=== PATIENT | male | born 1995 | race Caucasian/White ===

== ENCOUNTER 2022-07-17 19:06 | Emergency (ER) | payer BC, SELFPAY ==
[2022-07-17 19:29] VITALS: BP 137/105; PULSE 86; RESP 14; TEMP 36.7; O2SAT 100
[2022-07-17 19:44] LABS: Appearance Urine Clear (Clear); Bilirubin Urine Negative (Negative); Blood Urine Negative (Negative); Color Urine Yellow (Yellow); Glucose Urine UA Negative (Negative); Ketones Urine Trace mg/dL (Negative); Leukocyte Esterase Ur Negative LEU/UL (Negative); Nitrate Urine Negative (Negative); Protein Urine Negative (Negative); Urobilinogen Urine 0.2 mg/dL (<2.0)
[2022-07-17 19:47] LABS: Add Urine Microscopic? YES; Mucus Urine Rare /lpf; Squamous Epithelial Cell Urine Rare /hpf (Few); WBC Urine 0-3 /hpf
--- NOTE | 2022-07-17 21:36 | ED.MALEGU ---
HPI - Male Genitourinary General Chief complaint: Urogenital-Male Stated complaint: penis stabbing pain, no discharge Time Seen by Provider: 07/17/22 21:18 History of Present Illness HPI Narrative: Patient is a 26-year-old male who presents ER with pain in his penis. Reports its been intermittent in nature. When the pain comes it only lasts 1 to 2 seconds. It was worse with stretching backwards today. It is not associated with urinary frequency/urgency. Intermittent dysuria. Denies discharge from the tip of his penis. He was told by his girlfriend that his free ejaculate taste often smells bad. He has history of chlamydia in the past but reports he is only been with 1 person and the significant other reports she has only been with him. He has no pain in his abdomen, no nausea or vomiting or sweats. No flank pain. No history of stones. He has noticed no discharge/rash around his penis. Has not had issues with this previously. He is recently not been wearing underwear due to some chafing of his thighs and is unsure if this could be related. Related Data Allergies Allergy/AdvReac Type Severity Reaction Status Date / Time levofloxacin [From Levaquin] Allergy Hives Verified 07/17/22 19:07 Review of Systems Review of Systems: All systems reviewed & are unremarkable except as noted in HPI and below Constitutional: Constitutional: Denies chills, Denies fatigue and Denies fever(s) Cardiovascular: Cardiovascular: Denies chest pain and Denies slow heart rate Respiratory: Respiratory: Reports cough Genitourinary: Genitourinary: Denies hematuria, Denies oliguria, Denies genital lesions, Reports dysuria, Denies penile discharge and Denies testicular pain PMFSH Past Medical History Medical History (Updated 07/17/22 @ 21:50 by Darius Caceres MD) Healthy adult male Surgical History Surgical History (Updated 07/17/22 @ 21:50 by Darius Caceres MD) No history of previous surgery Exam Narrative: GENERAL: Well-appearing, well-nourished, and in no acute distress. HEAD: Normocephalic, atraumatic. ENT: Mucous membranes moist. EXTREMITIES: Normal range of motion. No edema. : Normal-appearing external genitalia with circumcised penis, glans free of rash or discharge. No abnormality to the urethral meatus and no urethral discharge. Testicles normal in contour and nontender. SKIN: Warm, dry, no rash. NEURO: Alert and oriented x3. PSYCH: Normal mood and affect. Course Vital Signs Vital signs: Vital Signs Temperature 98.0 F 07/17/22 19:29 Pulse Rate 86 07/17/22 19:29 Respiratory Rate 14 07/17/22 19:29 Blood Pressure 137/105 H 07/17/22 19:29 Pulse Oximetry 100 07/17/22 19:29 Oxygen Delivery Room Air 07/17/22 19:29 Temperature 98.0 F 07/17/22 19:29 Pulse Rate 86 07/17/22 19:29 Respiratory Rate 14 07/17/22 19:29 Blood Pressure 137/105 H 07/17/22 19:29 Pulse Oximetry 100 07/17/22 19:29 Oxygen Delivery Room Air 07/17/22 19:29 MDM - Male Genitourinary Lab Data Labs: Lab Results 07/17/22 Range/Units 19:33 Urine Color Yellow (Yellow) Urine Appearance Clear (Clear) Urine pH 7.0 (5.0-9.0) Ur Specific [place] 1.020 (1.001-1.035) Urine Protein Negative (Negative) mg/dL Urine Glucose (UA) Negative (Negative) mg/dL Urine Ketones Trace (Negative) mg/dL Ur Blood (Man) Negative (Negative) Urine Nitrate Negative (Negative) Urine Bilirubin Negative (Negative) Urine Urobilinogen 0.2 (<2.0) mg/dL Leukocyte Esterase Rfl Negative (Negative) NICANOR/UL Urine RBC 3-5 H (0-2) /hpf Urine WBC 0-3 /hpf Ur Squamous Epith Cells Rare (Few) /hpf Urine Mucus Rare /lpf Discharge Plan Discharge Clinical Impression: Pain in penis Patient Disposition: Home, Self-Care Condition: Stable Additional Instructions: It is unknown why you are having discomfort in your penis. A gonorrhea and chlamydia screen was sent. Follow-up
== END 2022-07-17 21:52 | disposition home or self-care (01) ==
PROVIDERS: Physician Assistant; Emergency Provider Emergency Medicine
DX: N48.89 Other specified disorders of penis (principal)
CPT/HCPCS: 81001; 99283

== ENCOUNTER 2024-03-04 15:49 | Emergency (ER) | payer BC, SELFPAY ==
--- NOTE | 2024-03-04 15:56 | ED.MALEGU ---
HPI - Male Genitourinary General Chief complaint: Urogenital-Male Stated complaint: STD Testing Source: patient and RN notes reviewed Mode of arrival: ambulatory Limitations: no limitations History of Present Illness HPI Narrative: 28 y/o male presented for STD testing. Endorses known exposure to chlamydia; states his girlfriend tested positive, and he thinks he gave it to her because he was with a dirty girl before the girlfriend. Denies symptoms. Related Data Home Medications Medication Instructions Recorded Confirmed aripiprazole 10 mg tablet 10 mg DIRECTED 03/04/24 03/04/24 sertraline 50 mg tablet 50 mg DIRECTED 03/04/24 03/04/24 Allergies Allergy/AdvReac Type Severity Reaction Status Date / Time levofloxacin [From Levaquin] Allergy Hives Verified 07/17/22 19:07 Review of Systems Review of Systems: CONSTITUTIONAL: Denies body aches, fever, chills, or sweats. CARDIOVASCULAR: Denies chest pain, palpitations, or edema. RESPIRATORY: Denies cough or dyspnea. GASTROINTESTINAL: Denies abdominal pain, nausea, vomiting, or diarrhea. GENITOURINARY: denies dysuria, frequency, urgency, hematuria, flank pain SKIN: Denies rash, itching, or wounds. MUSCULOSKELETAL: Denies back pain or myalgia. [facility] Past Medical History Medical History Healthy adult male Surgical History Surgical History No history of previous surgery Comments At time of signature, I have reviewed and agree with nursing past medical, surgical, social and family history unless otherwise noted. Please see nursing chart for further information. There is no relevant family history pertinent to the presenting complaint Exam Narrative: GENERAL: Well-appearing ENT: Mucous membranes pink and moist. CHEST: No respiratory distress. Clear to auscultation. HEART: Regular rate and rhythm. ABDOMEN: Soft, nontender, nondistended, normal active bowel sounds. No CVA tenderness SKIN: Warm, dry, no rash. NEURO: No focal deficits. Alert and oriented x3. Gait steady. PSYCH: Normal affect. Course Course Emergency Course: Patient is aware of diagnosis, understands and agrees to treatment plan. Anticipatory guidance given. Patient agrees to follow-up as directed and is aware of reasons to seek care at the emergency department. Portions of this record may have been created with voice recognition software Level of Care: Express Care Visit Vital Signs Vital signs: Vital Signs Temperature 98.2 F 03/04/24 16:01 Pulse Rate 99 03/04/24 16:01 Respiratory Rate 18 03/04/24 16:01 Blood Pressure 149/94 H 03/04/24 16:01 Pulse Oximetry 98 03/04/24 16:01 Oxygen Delivery Room Air 03/04/24 16:01 Temperature 98.2 F 03/04/24 16:01 Pulse Rate 99 03/04/24 16:01 Respiratory Rate 18 03/04/24 16:01 Blood Pressure 149/94 H 03/04/24 16:01 Pulse Oximetry 98 03/04/24 16:01 Oxygen Delivery Room Air 03/04/24 16:01 Reviewed MDM - Male Genitourinary MDM Narrative Medical decision making narrative: Patient presenting with concern for STD specifically chlamydia with known exposure. Urine specimen collected for GC, chlamydia, trich. Informed Pt will be contacted w/ results when they become available if they are positive. Discussed with patient that it takes up to 7 days for results of cultures to be released and explained that we may treat empirically at this time. Agreeable to treatment at this time; RX doxycycline sent. I have instructed the patient to return to the ER at any time if there are any new or worsening symptoms. The patient expressed understanding of and agreement with this plan. Differential Diagnosis Differential diagnosis: Likely urinary tract infection, urethritis and other (std) Discharge Plan Discharge Clinical Impression: Concern about STD in male without diagnosis Patient Dispos
[2024-03-04 16:01] VITALS: BP 149/94; PULSE 99; RESP 18; TEMP 36.8; O2SAT 98
[2024-03-05 12:41] LABS: Trichomonas Vag PCR NOT DETECTED (NOT DETECTE)
[2024-03-05 12:42] LABS: Chlamydia trachomatis DETECTED (NOT DETECTE); Neisseria gonorrhoeae PCR NOT DETECTED (NOT DETECTE)
== END 2024-03-04 16:28 | disposition home or self-care (01) ==
PROVIDERS: Emergency Provider Nurse Practitioner Family
DX: Z20.822 Contact with and (suspected) exposure to COVID-19 (principal)
CPT/HCPCS: 87491; 87591; 87661; 99213; G0463